=== PATIENT | female | born 1945 | race Caucasian/White ===

== ENCOUNTER 2020-02-17 11:15 | Emergency (ER) | payer MEDICARE, OTHER ==
[~2020-02-17] VITALS: Ht 154.9 cm; Wt 79.4 kg
[2020-02-17 12:00] LABS: BASOPHILS ABSOLUTE AUTO 0.02 K/mm3 (0.00-0.23); BASOPHILS PERCENT AUTO 0 % (0-2); EOSINOPHILS ABSOLUTE AUTO 0.02 K/mm3 (0.00-0.68); EOSINOPHILS PERCENT AUTO 0 % (0-6); Hematocrit 46.4 % (33.0-51.0); Hemoglobin 15.2 g/dL (11.5-16.0); IMMATURE GRAN ABSOLUTE AUTO 0.04 K/mm3 (0.00-0.10); IMMATURE GRAN PERCENT AUTO 0 % (0-1); LYMPHOCYTES PERCENT AUTO 8 % (21-46); MONOCYTES ABSOLUTE AUTO 0.58 K/mm3 (0.16-1.47); MONOCYTES PERCENT AUTO 6 % (4-13); Mean Corpuscular HGB 30.1 pg (26.0-34.0); Mean Corpuscular HGB Conc 32.8 g/dL (31.5-36.5); Mean Corpuscular Volume 92 fL (80-100); Mean Platelet Volume 9.9 fL (9.1-12.4); NEUTROPHILS PERCENT AUTO 85 % (41-73); Platelet Count 268 K/mm3 (150-400); RDW Coefficient Variation 12.7 % (11.7-14.2); RDW Standard Deviation 42.6 fL (35.1-46.3); Red Blood Cell Count 5.05 M/mm3 (3.80-5.20); White Blood Cell Count 9.56 K/mm3 (4.00-11.30)
[2020-02-17 12:23] LABS: Alanine Aminotransfer (ALT/SGP 32 U/L (12-78); Albumin, Blood 3.7 g/dL (3.4-5.0); Albumin/Globulin Ratio 0.9 (0.8-1.8); Alk Phos 56 U/L (50-136); Anion Gap 8 mmol/L (6-16); Aspartate Aminotrans (AST/SGOT 25 U/L (12-37); Bilirubin, Total 0.7 mg/dL (0.1-1.0); Blood Urea Nitrogen 20 mg/dL (8-24); Bun/Creatinine Ratio 25.5 (12.0-20.0); CO2, Blood 26 mmol/L (21-32); Calcium, Blood 9.6 mg/dL (8.5-10.1); Chloride, Blood 106 mmol/L (98-108); Creatinine, Blood 0.79 mg/dL (0.40-1.00); Glomerular Filtration Rate >60 (60-); Glucose, Blood 119 mg/dL (70-99); Potassium, Blood 3.6 mmol/L (3.5-5.5); Sodium, Blood 140 mmol/L (136-145); Total Protein, Blood 7.7 g/dL (6.4-8.2)
[2020-02-17] MEDS ORDERED: ESTRADIOL1 M1 PO (13:16)
[2020-02-17] MEDS ORDERED: AMLODIPINE BESYL5 MG PO (13:17)
[2020-02-17] MEDS ORDERED: EUTHYROX100 MC1 PO (13:17)
[2020-02-17] MEDS ORDERED: ONDA4ODT (13:17)
[2020-02-17] MEDS ORDERED: Hydroxychloroq200 MG PO (13:17)
[2020-02-17] MEDS ORDERED: LOSA50 PO (13:18)
[2020-02-17] MEDS ORDERED: LOMOTIL 2.5-0.1 EACH PO (13:25)
[2020-02-17] MEDS ORDERED: DESVENLAFAXINE50 M3 PO (13:26)
[2020-02-17] MEDS ORDERED: SULINDAC200 MG PO (13:26)
[2020-02-17 15:09] LABS: Source, Urine Clean Catch
[2020-02-17 15:25] LABS: Appearance, Urine Clear (Clear); Bilirubin, Urine Neg (Neg); Blood, Urine Neg (Neg); Color, Urine Yellow (P-Yellow); Glucose Qualitative, Urine Neg (Neg); Ketones, Urine 4+ (Neg); Leukocyte Esterase, Urine Neg (Neg); Nitrite, Urine Neg (Neg); Protein, Urine 2+ (Neg); Specific Gravity, Urine 1.025 (1.003-1.022); Urobilinogen, Urine 1+ (Normal)
[2020-02-17 15:35] LABS: Amorphous Mod (0-Heavy); Bacteria Many /hpf; Red Blood Cells, Urine 0-2 /hpf (0-2); Squamous Epithelial Cells Mod /hpf (Few)
[2020-02-17] MEDS ORDERED: PHENERGAN25 MG PR (17:14)
== END 2020-02-17 17:40 | disposition home or self-care (01) ==
LOC: ER 11:15
PROVIDERS: Physician Assistant
DX: R11.2 Nausea with vomiting, unspecified (principal); I10 Essential (primary) hypertension; Z88.2 Allergy status to sulfonamides; Z88.8 Allergy status to other drugs, medicaments and biological substances; Z79.899 Other long term (current) drug therapy
CPT/HCPCS: 36415; 74177; 80053; 81001; 83690; 85025; 87086; 93005; 93010; 96361; 96374; 99284-25; J2405; J7030; Q9967

== ENCOUNTER 2021-07-13 09:38 | Day surgery (SDC) | payer MEDICARE, OTHER ==
[~2021-07-13] VITALS: Ht 154.9 cm; Wt 72.9 kg
[~2021-07-13 09:38] MED LIST: AMLODIPINE BESYL5 MG PO; DESVENLAFAXINE50 M3 PO; ESTRADIOL1 M1 PO; EUTHYROX100 MC1 PO; Hydroxychloroq200 MG PO; LOMOTIL 2.5-0.1 EACH PO; LOSA50 PO; ONDA4ODT; PHENERGAN25 MG PR; SULINDAC200 MG PO
[2021-07-13] MEDS ORDERED: TIZA4 (10:19)
--- NOTE | 2021-07-13 10:32 | NUR ---
07/13/21 1032 GENESIS NGUYENFRARMANDO 4MG/2 ML IV PUSH @ [id number]
== END 2021-07-13 11:43 | disposition home or self-care (01) ==
LOC: ORSCSDS 09:38
PROVIDERS: Internal Medicine Gastroenterology
PROC: 0DBM8ZX Excision of Descending Colon, Via Natural or Artificial Opening Endoscopic, Diagnostic (ICD-10-PCS; principal; 2021-07-13 10:45)
DX: R93.3 Abnormal findings on diagnostic imaging of other parts of digestive tract (principal); Z86.010 Personal history of colon polyps; D12.4 Benign neoplasm of descending colon; K57.30 Diverticulosis of large intestine without perforation or abscess without bleeding; K64.8 Other hemorrhoids; K59.09 Other constipation; K58.0 Irritable bowel syndrome with diarrhea; Z87.891 Personal history of nicotine dependence; Z79.899 Other long term (current) drug therapy
CPT/HCPCS: 88305; J2405; J2704; J7120

== ENCOUNTER → 2024-07-01 | Outpatient (CLI) | payer MEDICARE, OTHER ==
[~2024-07-01] MED LIST changes: +TIZA4
[2024-07-01 17:26] LABS: Free Thyroxine 1.27 ng/dL (0.70-1.60)
[2024-07-01 17:33] LABS: Thyroid Stimulating Hormone 0.11 uIU/mL (0.360-4.800)
== END ==
LOC: LAB 15:32 → LAB SHORT 15:32
PROVIDERS: Family Medicine
DX: E03.8 Other specified hypothyroidism (principal)
CPT/HCPCS: 84439; 84443

== ENCOUNTER 2025-03-01 12:20 | Emergency (ER) | payer MEDICARE, OTHER ==
[~2025-03-01] VITALS: Ht 152.4 cm; Wt 74.8 kg
[2025-03-01] MEDS ORDERED: Ketorolac Tromethamine 15mg Vial IV ONE (12:50)
[2025-03-01] MEDS ORDERED: Methyl Salicylate/Menth/Camph 57 GM TUBE TOP ONE (12:50)
[2025-03-01 13:24] LABS: BASOPHILS ABSOLUTE AUTO 0.06 K/mm3 (0.00-0.23); BASOPHILS PERCENT AUTO 1 % (0-2); EOSINOPHILS ABSOLUTE AUTO 0.75 K/mm3 (0.00-0.68); EOSINOPHILS PERCENT AUTO 11 % (0-6); Hematocrit 42.3 % (33.0-51.0); Hemoglobin 14.1 g/dL (11.5-16.0); IMMATURE GRAN ABSOLUTE AUTO 0.02 K/mm3 (0.00-0.10); IMMATURE GRAN PERCENT AUTO 0 % (0-1); LYMPHOCYTES ABSOLUTE AUTO 1.24 K/mm3 (0.84-5.20); LYMPHOCYTES PERCENT AUTO 17 % (21-46); MONOCYTES ABSOLUTE AUTO 0.75 K/mm3 (0.16-1.47); MONOCYTES PERCENT AUTO 11 % (4-13); Mean Corpuscular HGB Conc 33.3 g/dL (31.5-36.5); Mean Corpuscular Volume 93 fL (80-100); NEUTROPHILS ABSOLUTE AUTO 4.31 K/mm3 (1.96-9.15); NEUTROPHILS PERCENT AUTO 61 % (41-73); NRBC ABSOLUTE 0.00 K/mm3 (0.00-0.02); NRBC Auto 0.0 /100 WBC (0.0-0.2); Platelet Count 250 K/mm3 (150-400); RDW Coefficient Variation 13.6 % (11.7-14.2); RDW Standard Deviation 46.5 fL (35.1-46.3)
[2025-03-01 13:25] LABS: Source, Urine Clean Catch
[2025-03-01 13:32] LABS: Bilirubin, Urine Neg (Neg); Color, Urine Yellow (P-Yellow); Glucose Qualitative, Urine Neg (Neg); Ketones, Urine Neg (Neg); Leukocyte Esterase, Urine Neg (Neg); Protein, Urine Neg (Neg); Specific Gravity, Urine 1.005 (1.003-1.022); Urobilinogen, Urine NORM (Normal)
[2025-03-01 13:49] LABS: Red Blood Cells, Urine 0-2 /hpf (0-2); White Blood Cells, Urine 0-2 /hpf (0-5)
[2025-03-01 14:09] LABS: Alanine Aminotransfer (ALT/SGP 35.0 U/L (12-78); Albumin, Blood 3.9 g/dL (3.4-5.0); Albumin/Globulin Ratio 1.1 (0.8-1.8); Anion Gap 8.0 mmol/L (3-11); Aspartate Aminotrans (AST/SGOT 31.0 U/L (12-37); Bilirubin, Total 0.5 mg/dL (0.1-1.0); Blood Urea Nitrogen 16.0 mg/dL (8-24); CO2, Blood 28.0 mmol/L (21-32); Calcium, Blood 9.8 mg/dL (8.5-10.1); Chloride, Blood 101.0 mmol/L (98-108); Creatinine, Blood 0.95 mg/dL (0.40-1.00); Globulin, Blood 3.6 g/dL (2.2-4.0); Glucose, Blood 98.0 mg/dL (70-99); Potassium, Blood 3.7 mmol/L (3.5-5.5); Sodium, Blood 133.0 mmol/L (136-145); Total Protein, Blood 7.5 g/dL (6.4-8.2)
[2025-03-01 14:31] VITALS: BP 142/57
[2025-03-01] MEDS ORDERED: Voltaren100 GM TOP (15:04)
== END 2025-03-01 15:08 | disposition home or self-care (01) ==
LOC: ER 12:20
PROVIDERS: Physician Assistant
DX: M54.50 Low back pain, unspecified (principal); I10 Essential (primary) hypertension
CPT/HCPCS: 80053; 81001; 85025; 87086; 96374; 99283-25; A9270; J1885